=== PATIENT | female | born 2000 | race American Indian/Alaskan Native ===

== ENCOUNTER 2020-11-12 11:09 | Outpatient (CLI) | payer BC ==
[2020-11-17 05:51] LABS: Vitamin D, 25-OH, D2 <4 ng/mL
== END 2020-11-12 11:10 | disposition home or self-care (01) ==
LOC: LAB 11:09
PROVIDERS: ATTEND Internal Medicine
DX: Z13.220 Encounter for screening for lipoid disorders (principal); Z13.1 Encounter for screening for diabetes mellitus; Z13.29 Encounter for screening for other suspected endocrine disorder; Z00.00 Encounter for general adult medical examination without abnormal findings; E55.9 Vitamin D deficiency, unspecified; N91.2 Amenorrhea, unspecified
CPT/HCPCS: 36415; 82306; 83001; 84144